=== PATIENT | male | born 1990 | race Caucasian/White ===

== ENCOUNTER 2019-05-16 17:47 | Emergency (ER) | payer OTHER ==
[~2019-05-16] VITALS: Ht 172.7 cm; Wt 81.7 kg
[2019-05-16 18:13] LABS: ABSOLUTE EOSINOPHILS 0.2 thou/uL (0.0-0.7); ABSOLUTE LYMPHOCYTES 1.8 thou/uL (0.8-5.3); ABSOLUTE MONOCYTES 0.5 thou/uL (0.0-1.2); ABSOLUTE NEUTROPHILS 2.5 thou/uL (1.6-8.1); BASOPHILS 0.7 %; EOSINOPHILS 3.4 %; HEMATOCRIT 43.8 % (42.0-52.0); HEMOGLOBIN 15.8 gm/dL (14.0-18.0); LYMPHOCYTES 35.4 %; MCH 33.2 pg (26.0-34.0); MCV 92.2 fL (80.0-100.0); MONOCYTES 9.8 %; MPV 8.7 fl. (7.2-11.1); NUCLEATED RBCS 0 /100WBC; PLATELET COUNT* 205 thou/uL (150-400); POLYS 50.7 %; RBC 4.75 mil/uL (4.50-6.00); RDW-CV 12.1 % (10.5-14.5)
[2019-05-16 18:21] LABS: ANION GAP 8 mmol/L (7-16); BUN 11 mg/dL (7-18); CALCIUM 8.9 mg/dL (8.5-10.1); CHLORIDE 104 mmol/L (98-107); CO2 28 mmol/L (21-32); CREATININE 1.1 mg/dL (0.6-1.3); GLUCOSE 108 mg/dL (70-99); POTASSIUM 3.8 mmol/L (3.5-5.1); SODIUM 140 mmol/L (136-145)
[2019-05-16 18:30] LABS: ALBUMIN 4.2 g/dL (3.4-5.0); ALKALINE PHOSPHATASE 75 U/L (46-116); LIPASE 75 U/L (73-393); SGOT 18 U/L (15-37); SGPT 42 U/L (30-65); TOTAL BILIRUBIN 0.6 mg/dL (<0.1-1.0); TOTAL PROTEIN 7.4 g/dL (6.4-8.2); TROPONIN-I LEVEL <0.06 ng/mL (<0.06)
[2019-05-16] MEDS ORDERED: ZOFRAN4 MG PO (20:41)
[2019-05-16 20:57] VITALS: BP 121/71
--- NOTE | 2019-05-17 11:19 | EKG ---
[place] [address] ELECTROCARDIOGRAM REPORT Name: REINALDO ARZOLA Room: [facility]#: [id number] Admission: 05/16/19 Attend Phys: Discharge: 05/16/19 Date of : 88 Report #: [id number] THIS REPORT FOR: //name// [facility] ED Test Date: 2019-05-16 Test Time: 17:55:09 Pat Name: REINALDO ARZOLA Department: Room: Gender: M Occupational Therapy Assistant: AMAYA : 1990 Requested By: Juan Guthrie Order Number: [id number] MD: Lukas Hall Measurements Intervals [place] Rate: 71 P: 54 W[place]: 131 QRS: 20 QRSD: 100 T: 21 QT: 378 QTc: 411 Interpretive Statements Sinus rhythm No previous ECG available for comparison Electronically Signed On 05-17-2019 11:19:29 CDT by Lukas Hall [email or web address] <ELECTRONICALLY SIGNED> By: Lukas Hall MD, LOCATED WITHIN [facility] 05/17/19 1119 1755 1755 Lukas Hall MD, FACC /EPI
== END 2019-05-16 20:58 | disposition home or self-care (01) ==
LOC: M.ERS 17:47
PROVIDERS: Emergency Medicine Emergency Medical Services
DX: R07.89 Other chest pain (principal)

== ENCOUNTER 2019-06-19 17:25 | Emergency (ER) | payer OTHER ==
[~2019-06-19] VITALS: Ht 172.7 cm; Wt 82.6 kg
[~2019-06-19 17:25] MED LIST: ZOFRAN4 MG PO
[2019-06-19] MEDS ORDERED: CELEXA 10 MG TA10 M1 PO (17:31)
[2019-06-19] MEDS ORDERED: HYDROXYZINE HCL10 M1 PO (17:31)
[2019-06-19] MEDS ORDERED: TYLENOL WITH CO1 TA1 PO (19:00)
[2019-06-19] MEDS ORDERED: NAPROSYN500 MG PO (19:00)
[2019-06-19 19:28] VITALS: BP 140/86
== END 2019-06-19 19:31 | disposition home or self-care (01) ==
LOC: M.ERS 17:25
DX: M25.511 Pain in right shoulder (principal); F17.210 Nicotine dependence, cigarettes, uncomplicated

== ENCOUNTER 2019-10-04 09:47 | Emergency (ER) | payer OTHER ==
[~2019-10-04] VITALS: Ht 172.7 cm; Wt 81.7 kg
[~2019-10-04 09:47] MED LIST changes: +CELEXA 10 MG TA10 M1 PO; +HYDROXYZINE HCL10 M1 PO; +NAPROSYN500 MG PO; +TYLENOL WITH CO1 TA1 PO
[2019-10-04 10:32] LABS: URINE BILIRUBIN NEGATIVE (Negative); URINE BLOOD NEGATIVE (Negative); URINE CLARITY CLEAR; URINE COLOR YELLOW; URINE GLUCOSE-RANDOM NEGATIVE (Negative); URINE KETONES NEGATIVE (Negative); URINE LEUKOCYTES-REFLEX NEGATIVE (Negative); URINE NITRITE-REFLEX NEGATIVE (Negative); URINE PROTEIN NEGATIVE (Negative); URINE SPECIFIC GRAVITY 1.025 (1.005-1.030); URINE UROBILINOGEN 0.2 E.U./dl (0.2-1.0)
[2019-10-04 10:46] LABS: CALCIUM 8.2 mg/dL (8.5-10.1); POTASSIUM 3.7 mmol/L (3.5-5.1)
[2019-10-04 10:51] LABS: ALBUMIN 3.9 g/dL (3.4-5.0); TOTAL BILIRUBIN 0.8 mg/dL (<0.1-1.0); TOTAL PROTEIN 6.9 g/dL (6.4-8.2)
[2019-10-04 11:04] LABS: INFLUENZA A ANTIGEN Negative (Negative); INFLUENZA B ANTIGEN Negative (Negative)
[2019-10-04 11:08] LABS: HEMATOCRIT 46.8 % (42.0-52.0); HEMOGLOBIN 16.5 gm/dL (14.0-18.0); MCH 33.1 pg (26.0-34.0); MCHC 35.4 g/dL (28.0-37.0); MCV 93.6 fL (80.0-100.0); MPV 9.3 fl. (7.2-11.1); NUCLEATED RBCS 0 /100WBC; PLATELET COUNT* 201 thou/uL (150-400); RDW-CV 12.3 % (10.5-14.5); WBC 10.9 thou/uL (4.0-11.0)
[2019-10-04 11:27] LABS: ABSOLUTE LYMPHOCYTES 0.3 thou/uL (0.8-5.3); ABSOLUTE MONOCYTES 0.7 thou/uL (0.0-1.2); ABSOLUTE NEUTROPHILS 9.9 thou/uL (1.6-8.1)
[2019-10-04 11:28] LABS: PLATELET ESTIMATE ADEQUATE
[2019-10-04] MEDS ORDERED: IBUPROFEN 800800 MG PO (11:36)
[2019-10-04 11:57] VITALS: BP 120/78
== END 2019-10-04 12:00 | disposition home or self-care (01) ==
LOC: M.ERS 09:47
PROVIDERS: Personal Emergency Response Attendant
DX: B34.9 Viral infection, unspecified (principal); R42 Dizziness and giddiness; R11.2 Nausea with vomiting, unspecified; F17.200 Nicotine dependence, unspecified, uncomplicated

== ENCOUNTER 2019-10-18 04:12 | Emergency (ER) | payer OTHER ==
[~2019-10-18] VITALS: Ht 172.7 cm; Wt 81.7 kg
[~2019-10-18 04:12] MED LIST changes: +IBUPROFEN 800800 MG PO
[2019-10-18] MEDS ORDERED: WELLBUTRIN 100100 MG PO (04:21)
[2019-10-18] MEDS ORDERED: NAPROSYN500 MG PO (04:45)
[2019-10-18] MEDS ORDERED: PENICILLIN VK500 MG PO (04:45)
[2019-10-18 05:01] VITALS: BP 128/76
== END 2019-10-18 05:01 | disposition home or self-care (01) ==
LOC: M.ERS 04:12
DX: K04.7 Periapical abscess without sinus (principal); F17.210 Nicotine dependence, cigarettes, uncomplicated

== ENCOUNTER 2019-11-10 03:00 | Emergency (ER) | payer OTHER ==
[~2019-11-10] VITALS: Ht 172.7 cm; Wt 79.4 kg
[~2019-11-10 03:00] MED LIST changes: +PENICILLIN VK500 MG PO; +WELLBUTRIN 100100 MG PO
[2019-11-10] MEDS ORDERED: TRAMADOL 50 MG50 MG PO (03:32)
[2019-11-10] MEDS ORDERED: PENICILLIN VK250 MG PO (03:32)
[2019-11-10 03:38] VITALS: BP 148/82
== END 2019-11-10 03:39 | disposition home or self-care (01) ==
LOC: M.ERS 03:00
DX: K02.9 Dental caries, unspecified (principal)